=== PATIENT | male | born 1990 | race Caucasian/White ===

== ENCOUNTER 2019-01-02 14:04 | Emergency (ER) | payer OTHER ==
[~2019-01-02] VITALS: Ht 177.8 cm; Wt 74.8 kg
[2019-01-02 14:05] VITALS: BP 123/77
== END 2019-01-02 14:43 | disposition left against medical advice (07) ==
LOC: ER 14:04
DX: S00.81XA Abrasion of other part of head, initial encounter (principal); M54.2 Cervicalgia; F17.210 Nicotine dependence, cigarettes, uncomplicated; V27.0XXA Motorcycle driver injured in collision with fixed or stationary object in nontraffic accident, initial encounter; Y93.89 Activity, other specified; Y92.89 Other specified places as the place of occurrence of the external cause; Y99.8 Other external cause status

== ENCOUNTER 2019-05-20 01:02 | Emergency (ER) | payer OTHER ==
[~2019-05-20] VITALS: Ht 177.8 cm; Wt 74.8 kg
[2019-05-20] MEDS ORDERED: BACTRIM DS TAB1 EACH PO (02:54)
[2019-05-20 03:15] VITALS: BP 131/83
== END 2019-05-20 03:17 | disposition home or self-care (01) ==
LOC: ER 01:02
DX: L02.414 Cutaneous abscess of left upper limb (principal); L02.416 Cutaneous abscess of left lower limb; F17.210 Nicotine dependence, cigarettes, uncomplicated

== ENCOUNTER 2019-08-12 10:54 | Emergency (ER) | payer OTHER ==
[~2019-08-12] VITALS: Ht 177.8 cm; Wt 72.6 kg
[~2019-08-12 10:54] MED LIST: BACTRIM DS TAB1 EACH PO
[2019-08-12] MEDS ORDERED: BACTRIM DS TAB1 EACH PO (12:43)
[2019-08-12 13:09] VITALS: BP 104/55
== END 2019-08-12 13:09 | disposition home or self-care (01) ==
LOC: ER 10:54
DX: L02.31 Cutaneous abscess of buttock (principal); F32.9 Major depressive disorder, single episode, unspecified; F41.9 Anxiety disorder, unspecified; F17.210 Nicotine dependence, cigarettes, uncomplicated

== ENCOUNTER 2019-09-07 15:35 | Emergency (ER) | payer OTHER ==
[~2019-09-07] VITALS: Ht 180.3 cm; Wt 79.4 kg
[2019-09-07 15:36] VITALS: BP 132/80
[2019-09-07] MEDS ORDERED: FLEXERIL PO (15:53)
[2019-09-07] MEDS ORDERED: NAPROSYN500 MG PO (15:53)
[2019-09-07 16:05] LABS: URINE BILIRUBIN NEGATIVE (Negative); URINE BLOOD NEGATIVE (Negative); URINE CLARITY CLEAR; URINE COLOR YELLOW; URINE GLUCOSE-RANDOM* NEGATIVE (Negative); URINE KETONES NEGATIVE (Negative); URINE LEUKOCYTES-REFLEX NEGATIVE (Negative); URINE NITRITE-REFLEX NEGATIVE (Negative); URINE PROTEIN (DIPSTICK) NEGATIVE (Negative); URINE SPECIFIC GRAVITY >= 1.030 (1.005-1.035)
== END 2019-09-07 16:16 | disposition home or self-care (01) ==
LOC: ER 15:35
PROVIDERS: Emergency Medicine
DX: S39.012A Strain of muscle, fascia and tendon of lower back, initial encounter (principal); F17.210 Nicotine dependence, cigarettes, uncomplicated; W19.XXXA Unspecified fall, initial encounter; Y93.89 Activity, other specified; Y92.89 Other specified places as the place of occurrence of the external cause; Y99.8 Other external cause status

== ENCOUNTER 2019-09-14 09:50 | Emergency (ER) | payer OTHER ==
[~2019-09-14] VITALS: Ht 177.8 cm; Wt 74.8 kg
[~2019-09-14 09:50] MED LIST changes: +FLEXERIL PO; +NAPROSYN500 MG PO
[2019-09-14 09:51] VITALS: BP 122/68
== END 2019-09-14 11:02 | disposition home or self-care (01) ==
LOC: ER 09:50
DX: M54.6 Pain in thoracic spine (principal); M54.5 Low back pain; F32.9 Major depressive disorder, single episode, unspecified; F41.9 Anxiety disorder, unspecified; G89.29 Other chronic pain; F17.210 Nicotine dependence, cigarettes, uncomplicated; W01.0XXA Fall on same level from slipping, tripping and stumbling without subsequent striking against object, initial encounter; Y93.89 Activity, other specified; Y92.89 Other specified places as the place of occurrence of the external cause; Y99.8 Other external cause status